=== PATIENT | male | born 1975 | race Caucasian/White ===

== ENCOUNTER 2016-06-16 09:11 | Outpatient (RCR) | payer OTHER | END 2016-09-14 | LOC: WSOH | DX: S23.3XXA Sprain of ligaments of thoracic spine, initial encounter (principal); M62.830 Muscle spasm of back; X50.1XXA Overexertion from prolonged static or awkward postures, initial encounter; Y99.0 Civilian activity done for income or pay ==

== ENCOUNTER 2017-10-27 12:01 | Day surgery (SDC) | payer OTHER ==
[~2017-10-27] VITALS: Ht 185.4 cm; Wt 101.1 kg
[~2017-10-27 12:01] MED LIST: FLOMAX 0.40.4 MG/CAP PO; PERCOCET 325 MG1 TA2 PO; PYRIDIUM 100MG100 MG PO
[2017-10-27 12:57] VITALS: BP 122/92; PULSE 78; TEMP 98
[2017-10-27 17:00] VITALS: TEMP 98.4
[2017-10-27 17:15] VITALS: BP 131/89; PULSE 75
[2017-10-27 17:30] VITALS: BP 136/92; PULSE 70
[2017-10-27 17:39] VITALS: BP 131/89; PULSE 70
[2017-10-27] MEDS ORDERED: PERCOCET 325 MG1 TA2 PO (17:45)
[2017-10-27] MEDS ORDERED: PYRIDIUM 100MG100 MG PO (17:46)
[2017-10-27] MEDS ORDERED: SENOKOT S 50 MG1 TAB PO (17:46)
== END 2017-10-27 18:15 | disposition home or self-care (01) ==
LOC: SDCO 12:01
DX: N13.2 Hydronephrosis with renal and ureteral calculous obstruction (principal); R31.0 Gross hematuria; F17.210 Nicotine dependence, cigarettes, uncomplicated; R35.0 Frequency of micturition; R39.15 Urgency of urination; Z88.6 Allergy status to analgesic agent
CPT/HCPCS: C1769; C2617; J1100; J2405; J2704; J3010; J7120